=== PATIENT | female | born 1995 | race Caucasian/White ===

== ENCOUNTER 2017-06-22 05:56 | Inpatient (IN) | payer SELFPAY ==
[~2017-06-22] VITALS: Ht 167.6 cm; Wt 55.2 kg
[2017-06-22] MEDS ORDERED: SOD CHLORIDE 0.9% 2,000 ML IV STA (06:09)
[2017-06-22 06:26] LABS: MODE ROOM AIR; MetHgb Venous 0.3 %; Sample Type Blood venous; Venous COHb 0.3 %; Venous Fraction OxyHgb 61.3 %; Venous Total Hemglobin 14.9 g/dl
[2017-06-22] MEDS ORDERED: LORAZEPAM 2 MG INJ IV ONE (06:30)
[2017-06-22] MEDS ORDERED: ONDANSETRON 4 MG INJ IV STA ×2 (06:35→09:13)
[2017-06-22] MEDS ORDERED: ONDANSETRON 4 MG INJ ONE (06:36)
--- NOTE | 2017-06-22 06:41 | ERA ---
ER Documentation Chief Complaint Date/Time DATE: 06/22/17 TIME: 06:37 Chief Complaint abd pain, w/ hx- of hyper glycemia and DKA accu check-306 HPI 21-year-old female history of insulin-dependent diabetes who states that she has been out of her medications for at least 3 days. She states that her insurance no longer covers it. The patient is yelling and screaming complaining of nausea, numbness and tingling. She states that she was just at [facility] and diagnosed with DKA and left AGAINST MEDICAL ADVICE. The patient's Accu-Chek is elevated in triage. Patient denies any fevers chills chest pain or shortness of breath. ROS All systems reviewed and are negative except as per history of present illness. Allergies Allergies: Coded Allergies: No Known Allergy (Unverified , 06/22/17) FmHx Family History: No diabetes Physical Exam Vitals Vital Signs Date Time Temp Pulse Resp B/P Pulse Ox O2 Delivery O2 Flow Rate FiO2 06/22/17 08:00 110 23 130/107 98 Room Air 06/22/17 06:43 119 30 115/73 100 Room Air 06/22/17 06:04 98.2 111 20 106/56 100 Physical Exam General: Disheveled, cachectic, yelling Head: Normocephalic, atraumatic. Eyes: Pupils equally reactive, EOM intact ENT: Very dry mucous membranes Neck: Supple, no lymphadenopathy Respiratory: Lungs clear bilaterally, no distress Cardiovascular: RRR, no murmurs, rubs, or gallops Abdominal: Soft, non-tender, non-distended, no peritoneal signs : Deferred MSK: No edema, no unilateral swelling, 5/5 strength Neurologic: Alert and oriented, moving all extremities, normal speech, no focal weakness, no cerebellar signs Skin: No rash Psych: Agitated mood Result Diagram: 06/22/17 0754 06/22/17 0710 Results 24 hrs Laboratory Tests Test 06/22/17 06:09 06/22/17 07:05 06/22/17 07:10 06/22/17 07:54 Blood Gas Specimen Source Blood venous Arterial Blood Date Drawn 06/22/2017 6:18:28 AM Arterial Blood Gas Puncture Site VENOUS LINE Michael Test N/A Venous Blood pH 7.205 Venous Blood pCO2 (Temp Corrected) 24.7mmHG Venous Blood pO2 (Temp Corrected) 36.5mmHG Venous Blood HCO3 9.5mmol/L Venous Blood Oxygen Saturation 61.7mmHG Venous Blood Base Excess -16.5mmol/L Venous Blood Total Hemoglobin 14.9g/dl Venous Blood Oxyhemoglobin 61.3% Venous Blood Methemoglobin 0.3% Carboxyhemoglobin 0.3% Blood Gas Temperature 37.0C Blood Gas Actual Respiration Rate 20 Blood Gas Modality ROOM AIR FiO2 21.0% Blood Gas Notified Whom Blood Gas Notified Time 06/22/2017 6:26:01 AM Bedside Glucose 345mg/dL Sodium Level 138mmol/L Potassium Level 5.0mmol/L Chloride Level 102mmol/L Carbon Dioxide Level 8mmol/L Anion Gap 33 Blood Urea Nitrogen 11mg/dl Creatinine 0.69mg/dl Glucose Level 329mg/dl Calcium Level 9.3mg/dl Phosphorus Level 2.8mg/dl Magnesium Level 1.7mg/dl Serum HCG, Qualitative NEGATIVE White Blood Count 13.110^3/ul Red Blood Count 4.7210^6/ul Hemoglobin 14.2g/dl Hematocrit 45.7% Mean Corpuscular Volume 96.8fl Mean Corpuscular Hemoglobin 30.1pg Mean Corpuscular Hemoglobin Concent 31.1g/dl Red Cell Distribution Width 14.3% Platelet Count 10035^3/UL Mean Platelet Volume 11.6fl Neutrophils % 77.5% Lymphocytes % 17.7% Monocytes % 3.4% Eosinophils % 0.4% Basophils % 0.5% Nucleated Red Blood Cells % 0.0/100WBC Neutrophils # 10.110^3/ul Lymphocytes # 2.310^3/ul Monocytes # 0.410^3/ul Eosinophils # 0.110^3/ul Basophils # 0.110^3/ul Nucleated Red Blood Cells # 0.010^3/ul Test 06/22/17 08:04 Bedside Glucose 304mg/dL Current Medications Medications (Trade) Dose Ordered Sig/Ilsa Route PRN Reason Start Time Stop Time Status Last Admin Dose Admin Sodium Chloride (NS) 2,000 ml @ 1,000 mls/hr Q2H STAT IV 06/22/17 06:09 06/22/17 08:08 DC 06/22/17 06:40 Lorazepam (Ativan) 1 mg ONCE ONCE IV 06/22/17 06:30 06/22/17 06:31 DC 06/22/17 06:41 Ondansetron HCl (Zofran Inj) 4 mg ONCE STAT IV 06/22/17 06:35 06/22/17 06:36 DC 06/22/17 06:40 Ondansetron HCl 4 mg 4 mg STK-MED ONCE .ROUTE 06/22/17 06:36 06/22/17 06:37 DC Insulin Human Regular 100 unit/ Sodium Chloride 100 ml @ 0 mls/hr TITRATE STAT IV 06/22/17 08:12 06/22/17 08:17 DC Potassium Chloride 40 meq/ Sodium Chloride 1,020 ml @ 250 mls/hr Q4H5M IV 06/22/17 08:30 Potassium Chloride/Dextrose/ Sod Cl (D5-1/2ns + KCl 40 Meq) 1,000 ml @ 0 mls/hr Q0M IV 06/22/17 08:30 Procedures/MDM PROCEDURE: Peripheral IV Insertion: Indication: Difficult IV access Location: Left antecubital fossa Attempts: 3 Angiocath-type: 18 The patient was consented prior to procedure and states understanding of risks, benefits, alternatives. Verbal consent was provided Sterile procedure was used to insert a peripheral IV. Indication, location and Angiocath-type are noted above. Ultrasound guidance was used to assist in the insertion of the Angiocath. Return of dark nonpulsatile blood was obtained, normal saline flushed through the Angiocath which was then secured to the skin. The patient tolerated the procedure well without complications. Emergency Bedside Ultrasound: The patient was verbally consented prior to procedure and understands the risks , benefits, and alternatives. The patient is agreeable to procedure and has given verbal consent. Indication: Peripheral IV insertion Probe Type: Linear Findings: Dynamic ultrasound utilized with compression technique with both linear and horizontal views. LAB INTERPRETATION: Venous blood gas with a pH of 7.2 consistent with diabetic ketoacidosis, significant anion gap metabolic acidosis and hyperglycemia is noted MEDICAL DECISION MAKING: The patient presents with nausea, paresthesias and hyperglycemia in the setting of noncompliance of medication regimen very concerning for diabetic ketoacidosis. The patient's sugars likely noncompliance with medication regimen. No evidence of ischemia or infectious process. The patient has a benign abdominal exam without signs or symptoms of acute intra-abdominal process. The patient will require aggressive fluid resuscitation, management of hyperglycemic state and likely insulin drip. I will wait for laboratory values and potassium prior to initiation of insulin. The patient will be given 2 L of saline. Lactated Ringer's as needed. Electrolyte replacement as needed. The patient will require intensive care unit level of care. She is also extremely anxious and will benefit from anxiolysis with Ativan. ER COURSE: The patient was difficult IV access and difficult to get blood draw. She was also poorly cooperative with these procedures and medical care in general. Eventually we are able to obtain an IV. Labs were sent. The patient has an anion gap metabolic acidosis very consistent with diabetic ketoacidosis. Potassium is reassuring. The patient was initiated on an insulin drip per protocol. A 2 bag system using half-normal saline and D5 half-normal saline with 40 mEq of potassium each was initiated. Education was provided to the nursing team for directions on titration of the drips at a rate of 250 cc/h. The patient will benefit from intensive care unit level of care. Anxiolysis provided with Ativan. I kept the patient and/or family informed of laboratory and diagnostic imaging results throughout the emergency room course. DISPOSITION PLAN: Intensive care unit for management of diabetic ketoacidosis CONSULTATION: Accepting care team and consultations: I discussed the current laboratory data, diagnostic imaging and emergency care provided. Admitting team: Dr. Reyes Admitting team indication: Insurance directed Critical Care Note: Total time: 46 Indication/Organ System Threat: Diabetic ketoacidosis I spent the above amount of critical care time with the patient, not including billable procedures. This included chart review, consultations, repeat bedside evaluations, and titration of appropriate medications to prevent cardiopulmonary or respiratory collapse. Departure Diagnosis: Primary Impression: Diabetic ketoacidosis Qualified Code: E10.10 - Diabetic ketoacidosis without coma associated with type 1 diabetes mellitus Additional Impressions: Nausea and vomiting Qualified Code: R11.2 - Nausea and vomiting, intractability of vomiting not specified, unspecified vomiting type Noncompliance with medication regimen Condition: Critical IGGY HAGAN MD Jun 22, 2017 06:41
[2017-06-22 08:05] LABS: CALCIUM 9.3 mg/dl (8.4-10.2); CREATININE 0.69 mg/dl (0.44-1.00); MAGNESIUM 1.7 mg/dl (1.7-2.5); PHOSPHORUS 2.8 mg/dl (2.5-4.9)
[2017-06-22] MEDS ORDERED: INSULIN HUMAN REGULAR 100 UNIT in SOD CHLORIDE 0.9% 99 ML IV STA (08:12)
[2017-06-22 08:24] LABS: BASOPHIL # 0.1 10^3/ul (0.0-0.1); BASOPHILS % 0.5 % (0.0-2.0); EOSINOPHILS # 0.1 10^3/ul (0.0-0.5); EOSINOPHILS % 0.4 % (0.0-7.0); HEMATOCRIT 45.7 % (37.0-47.0); HEMOGLOBIN 14.2 g/dl (12.0-16.0); LYMPHOCYTES # 2.3 10^3/ul (0.8-2.9); LYMPHOCYTES % 17.7 % (18.0-55.0); MEAN CORPUSCULAR HEMOGLOBIN 30.1 pg (29.0-33.0); MEAN CORPUSCULAR HGB CONC 31.1 g/dl (32.0-37.0); MEAN CORPUSCULAR VOLUME 96.8 fl (72.0-104.0); MEAN PLATELET VOLUME 11.6 fl (7.4-10.4); MONOCYTE # 0.4 10^3/ul (0.3-0.9); MONOCYTES % 3.4 % (0.0-13.0); NEUTROPHIL # 10.1 10^3/ul (1.6-7.5); NEUTROPHILS % 77.5 % (30.0-74.0); PLATELET COUNT 196 10^3/UL (140-415); RED BLOOD COUNT 4.72 10^6/ul (4.20-5.40); RED CELL DISTRIBUTION WIDTH 14.3 % (11.5-14.5); WHITE BLOOD COUNT 13.1 10^3/ul (4.8-10.8)
[2017-06-22] MEDS ORDERED: D5W-0.45 NACL + KCL 40 MEQ 1,000 ML IV SCH ×3 (08:30→20:30)
[2017-06-22] MEDS ORDERED: SOD CHLORIDE 0.9% 1,000 ML IV SCH (09:17)
[2017-06-22] MEDS: POTASSIUM CHLORIDE 40 MEQ in SOD CHLORIDE 0.45% 1,000 ML IV SCH ×4 (09:21→20:45)
[2017-06-22] MEDS ORDERED: INSULIN HUMAN REGULAR 100 UNIT in SOD CHLORIDE 0.9% 99 ML IV SCH (09:30)
[2017-06-22] MEDS ORDERED: NA BICARBONATE 8.4% 50 ML SYG IV ONE (09:30)
[2017-06-22] MEDS ORDERED: DEXTROSE 50% 50 ML SYRINGE IV PRN ×2 (09:30)
[2017-06-22] MEDS: ACCU-CHEK XX SCH ×20 (09:45→23:55)
[2017-06-22] MEDS ORDERED: LACTATED RINGER'S 1,000 ML IV SCH (10:17)
[2017-06-22 10:18] LABS: ALBUMIN 4.2 g/dl (3.3-4.9); CALCIUM 8.9 mg/dl (8.4-10.2); CREATININE 0.73 mg/dl (0.44-1.00); PHOSPHORUS 2.8 mg/dl (2.5-4.9); POTASSIUM 5.1 mmol/L (3.5-5.1)
[2017-06-22 11:10] LABS: MODE ROOM AIR; Sample Type BLMV
[2017-06-22] MEDS ORDERED: POTASSIUM CHLORIDE 10 MEQ in SOD CHLORIDE 0.9% 1,000 ML IV SCH (11:17)
[2017-06-22 11:34] LABS: CREATININE 0.63 mg/dl (0.44-1.00); MAGNESIUM 1.4 mg/dl (1.7-2.5); PHOSPHORUS 2.2 mg/dl (2.5-4.9); POTASSIUM 5.2 mmol/L (3.5-5.1)
--- NOTE | 2017-06-22 12:43 | HP ---
Date/Time of Note Date/Time of Note DATE: 06/22/17 TIME: 12:36 Assessment/Plan VTE Prophylaxis VTE Prophylaxis Intervention: SCD's Assessment/Plan Chief Complaint/Hosp Course Patient is a 21-year-old noncompliant insulin-dependent diabetic who ran out of medications 3 ago, presents with DKA Assessment Diabetic ketoacidosis secondary to medication noncompliance Agitation, Altered mental status, likely secondary to DKA Hyperkalemia, likely transient due to DKA Metabolic acidosis, likely secondary to DKA Hypoglycemia Electrolyte derangement Plan -Admit to ICU for DKA protocol with insulin drip -Copious fluids -Every 4 hours VBG and renal panels -We will follow closely in the ICU -Repeat a.m. labs Cayden Gross DO Problems: HPI/ROS Admit Date/Time Admit Date/Time Hx of Present Illness Patient is a 21-year-old female with past medical history of insulin- dependent diabetes who presents to [facility] the same day as she left AMA from [place]. Patient is in DKA at [place] and still left AMA. Patient is currently still in DKA and will be admitted to the ICU. Patient currently is sleeping and is only arousable when agitated or when you take the covers off her. Patient is unwilling to cooperate during the exam. Unable to confirm other review of systems as patient is noncompliant with questioning and answering. PMH: Insulin-dependent diabetes PSH: Unknown Social: Unknown Meds: Insulin, however patient has not been with her medications last 3 days PMH/Family/Social Social History Smoking Status: Unknown if ever smoked Exam/Review of Systems Vital Signs Vitals Vital Signs Date Time Temp Pulse Resp B/P Pulse Ox O2 Delivery O2 Flow Rate FiO2 06/22/17 12:28 101 20 110/65 100 Room Air 06/22/17 06:04 98.2 Exam Exam Physical exam General: Patient is laying in bed, sleeping, can easily arouse, but patient can get agitated. Mentation: unable to fully assess given agitated state Head: Normocephalic atraumatic Eyes: EOMI, Neck: Supple, nontender, midline Respiratory: will not cooperate, Cardiovascular: tachycardic, no obvious murmurs Gastrointestinal: non-tender to palpation, bowel sounds heard. Neurological: Moves all extremities spontaneously Skin: No new skin lesions Labs Result Diagram: 06/22/17 0754 06/22/17 1029 Medications Medications Current Medications Potassium Chloride 40 meq/ Sodium Chloride 1,020 ml @ 250 mls/hr Q4H5M IV Last administered on 06/22/17 12:27; Admin Dose 250 MLS/HR; Start 06/22/17 at 08:30 Potassium Chloride/Dextrose/ Sod Cl (D5-1/2ns + KCl 40 Meq) 1,000 ml @ 0 mls/ hr Q0M IV Last administered on 06/22/17 09:21; Admin Dose 125 MLS/HR; Start at 08:30 Dextrose (D50w Syringe) 50 ml Q15M PRN IV For BS 50 or less; Start 06/22/17 at 09:30 Dextrose 25 ml 25 ml Q15M PRN IV BS between 50-70; Start 06/22/17 at 09:30 Potassium Chloride 10 meq/ Sodium Chloride 1,005 ml @ 500 mls/hr Q2H1M IV ; Start 06/22/17 at 11:17; Stop 06/22/17 at 13:16 Sodium Chloride (1/2 NS) 1,000 ml @ 300 mls/hr Q3H20M IV Last administered on 06/22/17 12:28; Admin Dose 300 MLS/HR; Start 06/22/17 at 13:17; Stop 06/22/17 at 16:36 Diagnostic Test (Pha) (Accu-Chek) 1 ea Q1H XX Last administered on 06/22/17 12 :27; Admin Dose 1 EA; Start 06/22/17 at 09:30 CAYDEN GROSS Jun 22, 2017 12:43
[2017-06-22] MEDS ORDERED: SOD CHLORIDE 0.45% 1,000 ML IV SCH (13:17)
[2017-06-22] MEDS ORDERED: CALCIUM GLUCONATE 10% 1 GM in SOD CHLORIDE 0.9% 100 ML IVPB ONE (14:00)
[2017-06-22] MEDS ORDERED: MAGNESIUM SULFATE 1 GM/D5W 100 ML IVPB ONE (14:00)
[2017-06-22] MEDS ORDERED: SODIUM PHOSPHATE 15 MMOL in SOD CHLORIDE 0.9% 250 ML IVPB ONE (14:00)
[2017-06-22 15:48] LABS: MetHgb Venous 0.5 %; Venous COHb 0 %; Venous Fraction OxyHgb 72.7 %; Venous Total Hemglobin 13.5 g/dl
[2017-06-22 16:02] LABS: CALCIUM 7.8 mg/dl (8.4-10.2); CREATININE 0.57 mg/dl (0.44-1.00); PHOSPHORUS 1.9 mg/dl (2.5-4.9); POTASSIUM 4.9 mmol/L (3.5-5.1)
[2017-06-22 17:04] LABS: ADD UMIC NO; UR ASCORBIC ACID NEGATIVE (NEGATIVE); UR BILIRUBIN (Dip) NEGATIVE (NEGATIVE); UR BLOOD (Dip) NEGATIVE (NEGATIVE); UR CLARITY CLEAR (CLEAR); UR COLOR COLORLESS (YELLOW); UR GLUCOSE (Dip) 3+ mg/dL (NEGATIVE); UR KETONES (Dip) 1+ mg/dL (NEGATIVE); UR LEUKOCYTE ESTERASE (Dip) NEGATIVE Leu/ul (NEGATIVE); UR NITRITE (Dip) NEGATIVE (NEGATIVE); UR SPECIFIC GRAVITY (Dip) 1.005 (1.003-1.030); UR TOTAL PROTEIN (Dip) NEGATIVE (NEGATIVE); UR UROBILINOGEN (Dip) NEGATIVE (NEGATIVE)
[2017-06-22 17:23] LABS: CANNABINOIDS Positive (NEGATIVE); OPIATES Negative (NEGATIVE)
[2017-06-22 17:26] LABS: BARBITURATES Negative (NEGATIVE); BENZODIAZEPINES Negative (NEGATIVE); COCAINE Negative (NEGATIVE)
[2017-06-22 19:38] LABS: CALCIUM 8.2 mg/dl (8.4-10.2); CREATININE 0.56 mg/dl (0.44-1.00); MAGNESIUM 1.8 mg/dl (1.7-2.5); PHOSPHORUS 2.6 mg/dl (2.5-4.9); POTASSIUM 4.7 mmol/L (3.5-5.1)
[2017-06-22 23:55] VITALS: TEMP 98.7
[2017-06-23] VITALS (24 sets, daily range): BP systolic 91–122; BP diastolic 63–84; PULSE 88–118; RESP 13–31; Ht 167.6 cm; Wt 55.2 kg
[2017-06-23] MEDS: ACCU-CHEK XX SCH ×20 (00:12→22:14)
[2017-06-23 02:07] LABS: CALCIUM 8.2 mg/dl (8.4-10.2); CREATININE 0.57 mg/dl (0.44-1.00); POTASSIUM 4.7 mmol/L (3.5-5.1)
[2017-06-23] MEDS: POTASSIUM CHLORIDE 40 MEQ in SOD CHLORIDE 0.45% 1,000 ML IV SCH (02:07)
[2017-06-23] MEDS ORDERED: GLUCAGON 1 MG INJ IM PRN (03:00)
[2017-06-23] MEDS ORDERED: DEXTROSE 50% 50 ML SYRINGE IV PRN ×3 (03:00→10:30)
[2017-06-23] MEDS ORDERED: GLUCOSE GEL 15 GRAM TUBE BUCCAL PRN (03:00)
[2017-06-23] MEDS ORDERED: GLUCOSE GEL 15 GRAM TUBE PO PRN ×2 (03:00)
[2017-06-23] MEDS ORDERED: DEXTROSE 5%-0.9% NACL 1,000 ML IV SCH (05:30)
[2017-06-23] MEDS: NPH, HUMAN INSULIN ISOPHANE 3ML VIAL SC SCH ×2 (05:30→08:34)
[2017-06-23] MEDS ORDERED: SOD CHLORIDE 0.9% 1,000 ML IV SCH (06:00)
[2017-06-23] MEDS ORDERED: INSULIN ASPART [NOVOLOG] 3 ML PEN SC SCH (07:35)
[2017-06-23 09:12] LABS: ALBUMIN 3.6 g/dl (3.3-4.9); CREATININE 0.53 mg/dl (0.44-1.00); MAGNESIUM 1.5 mg/dl (1.7-2.5); PHOSPHORUS 2.3 mg/dl (2.5-4.9); POTASSIUM 4.8 mmol/L (3.5-5.1)
[2017-06-23] MEDS ORDERED: INSULIN HUMAN REGULAR 100 UNIT in SOD CHLORIDE 0.9% 99 ML IV SCH (10:30)
[2017-06-23] MEDS ORDERED: HYPOGLYCEMIA TREATMENT XX PRN (10:30)
[2017-06-23 12:14] LABS: MODE ROOM AIR; MetHgb Venous 0.2 %; Sample Type Blood venous; Venous COHb 0.5 %; Venous Fraction OxyHgb 87.9 %; Venous Total Hemglobin 14.5 g/dl
[2017-06-23 12:50] LABS: ALBUMIN 3.5 g/dl (3.3-4.9); CREATININE 0.54 mg/dl (0.44-1.00); MAGNESIUM 1.5 mg/dl (1.7-2.5); PHOSPHORUS 2.2 mg/dl (2.5-4.9); POTASSIUM 5.2 mmol/L (3.5-5.1)
--- NOTE | 2017-06-23 13:43 | PN ---
Date/Time of Note Date/Time of Note DATE: 06/23/17 TIME: 13:39 Assessment/Plan VTE Prophylaxis VTE Prophylaxis Intervention: ambulation Lines/Catheters IV Catheter Type (from [facility]): Saline Lock Assessment/Plan Chief Complaint/Hosp Course Patient is a 21-year-old noncompliant insulin-dependent diabetic who ran out of medications 3 ago, presents with DKA Assessment Diabetic ketoacidosis secondary to medication noncompliance Agitation, Altered mental status, likely secondary to DKA Hyperkalemia, likely transient due to DKA Metabolic acidosis, likely secondary to DKA Hypoglycemia Electrolyte derangement Plan -Pt out of DKA this morning, however refused subq insulin, went back into DKA -restarted insulin protocol -patient changes her mind constantly. States will eat food, then refuses. -Fluids will try to be adjusted, no standing orders as patient's condition changes on a constant basis due to her agitated state. -q8 renal panels to monitor -We will follow closely in the ICU -Repeat a.m. labs Cayden Gross DO Problems: Subjective 24 Hr Interval Summary Free Text/Dictation Still agitated and yelling at staff. very non-compliant. Was out of DKA, then patient refused subq insulin, going back into DKA. Exam/Review of Systems Vital Signs Vitals Vital Signs Date Time Temp Pulse Resp B/P Pulse Ox O2 Delivery O2 Flow Rate FiO2 06/23/17 09:00 100 18 111/73 100 Room Air 06/23/17 08:35 98.8 Intake and Output 06/22/17 06/22/17 06/23/17 15:00 23:00 07:00 Intake Total 506 ml Balance 506 ml Exam Physical exam General: Patient is laying in bed, can easily arouse, but patient can get agitated. Mentation: unable to fully assess given agitated state Head: Normocephalic atraumatic Eyes: EOMI, Neck: Supple, nontender, midline Respiratory: will not cooperate, Cardiovascular: tachycardic, no obvious murmurs Gastrointestinal: non-tender to palpation, bowel sounds heard. Neurological: Moves all extremities spontaneously Skin: No new skin lesions Results Result Diagram: 06/22/17 0754 06/23/17 6055 Results 24 hrs Laboratory Tests Test 06/22/17 14:40 06/22/17 14:58 06/22/17 15:35 06/22/17 16:30 Bedside Glucose 215 208 Sodium Level 139 Potassium Level 4.9 Chloride Level 111 H Carbon Dioxide Level 15 L Anion Gap 18 #H Blood Urea Nitrogen 7 Creatinine 0.57 Glucose Level 224 H Calcium Level 7.8 L Phosphorus Level 1.9 L Magnesium Level 2.0 Urine Color COLORLESS Urine Clarity CLEAR Urine pH 5.0 Urine Specific [place] 1.005 Urine Ketones 1+ H Urine Nitrite NEGATIVE Urine Bilirubin NEGATIVE Urine Urobilinogen NEGATIVE Urine Leukocyte Esterase NEGATIVE Urine Hemoglobin NEGATIVE Urine Glucose 3+ H Urine Total Protein NEGATIVE Urine Opiates Screen Negative Urine Barbiturates Negative Urine Amphetamines Screen Negative Urine Benzodiazepines Screen Negative Urine Cocaine Screen Negative Urine Cannabinoids Positive Test 06/22/17 16:32 06/22/17 17:24 06/22/17 18:33 06/22/17 18:58 Bedside Glucose 186 184 162 Sodium Level 141 Potassium Level 4.7 Chloride Level 112 H Carbon Dioxide Level 18 L Anion Gap 16 Blood Urea Nitrogen 5 L Creatinine 0.56 Glucose Level 153 Calcium Level 8.2 L Phosphorus Level 2.6 Magnesium Level 1.8 Test 06/22/17 19:40 06/22/17 20:52 06/22/17 21:56 06/22/17 23:53 Bedside Glucose 112 112 139 183 Test 06/23/17 01:00 06/23/17 01:03 06/23/17 02:02 06/23/17 03:06 Bedside Glucose 141 135 104 Sodium Level 141 Potassium Level 4.7 Chloride Level 113 H Carbon Dioxide Level 19 L Anion Gap 14 Blood Urea Nitrogen 3 L Creatinine 0.57 Glucose Level 182 Calcium Level 8.2 L Test 06/23/17 04:05 06/23/17 04:27 06/23/17 04:44 06/23/17 07:18 Bedside Glucose 63 L 127 126 Blood Gas Specimen Source Blood venous Arterial Blood Date Drawn 06/23/2017 11:40:26 AM Arterial Blood Gas Puncture Site OTHER Michael Test N/A Venous Blood pH 7.328 L Venous Blood pCO2 (Temp Corrected) 28.4 L Venous Blood pO2 (Temp Corrected) 55.6 H Venous Blood HCO3 14.6 L Venous Blood Oxygen Saturation 88.5 H Venous Blood Base Excess -9.8 L Venous Blood Total Hemoglobin 14.5 Venous Blood Oxyhemoglobin 87.9 Venous Blood Methemoglobin 0.2 Carboxyhemoglobin 0.5 Blood Gas Temperature 37.0 Blood Gas Modality ROOM AIR FiO2 21.0 Blood Gas Critical Value Read Back HUI FRANKEL Blood Gas Notified Whom [place] Blood Gas Notified Time 06/23/2017 12:10:11 PM Test 06/23/17 08:20 06/23/17 08:22 06/23/17 09:56 06/23/17 11:35 Sodium Level 142 137 Potassium Level 4.8 5.2 H Chloride Level 108 105 Carbon Dioxide Level 15 L 13 L Anion Gap 24 #H 24 H Blood Urea Nitrogen 2 L 3 L Creatinine 0.53 0.54 Glucose Level 211 297 H Calcium Level 9.0 9.0 Phosphorus Level 2.3 L 1.9 L Magnesium Level 1.5 L 1.5 L Albumin 3.6 3.5 Bedside Glucose 202 249 H Hemoglobin A1c 11.3 H Test 06/23/17 11:55 06/23/17 12:50 Bedside Glucose 305 H 237 H Medications Medications Current Medications Lorazepam (Ativan) 1 mg Q6H PRN IV AGITATION; Start 06/22/17 at 13:00 Dextrose (D50w Syringe) 50 ml Q15M PRN IV For BS 50 or less; Start 06/23/17 at 10:30 Dextrose (D50w Syringe) 25 ml Q15M PRN IV BS between 50-70; Start 06/23/17 at 10:30 Diagnostic Test (Pha) 1 ea 1 ea Q1H XX ; Start 06/23/17 at 10:30 Sodium Chloride (1/2 NS) 1,000 ml @ 100 mls/hr Q10H IV ; Start 06/23/17 at 14: 00; Status UNV CAYDEN GROSS Jun 23, 2017 13:43
[2017-06-23] MEDS ORDERED: MAGNESIUM SULFATE 1 GM/D5W 100 ML IVPB ONE (14:00)
[2017-06-23] MEDS: DEXTROSE 5%-0.45% NACL 1,000 ML IV SCH (14:31)
[2017-06-23] MEDS: SOD CHLORIDE 0.45% 1,000 ML IV SCH (16:00)
[2017-06-23] MEDS ORDERED: SODIUM PHOSPHATE 30 MMOL in SOD CHLORIDE 0.9% 250 ML IVPB ONE (16:00)
[2017-06-23] MEDS: LORAZEPAM 2 MG INJ IV PRN (18:00)
[2017-06-23 20:46] LABS: CALCIUM 8.6 mg/dl (8.4-10.2); CREATININE 0.53 mg/dl (0.44-1.00); POTASSIUM 4.1 mmol/L (3.5-5.1)
[2017-06-23] MEDS: DEXTROSE 50% 50 ML SYRINGE IV PRN (22:08)
[2017-06-24] VITALS (10 sets, daily range): BP systolic 96–127; BP diastolic 60–89; PULSE 85–103; RESP 18–22
[2017-06-24] MEDS: ACCU-CHEK XX SCH ×13 (00:29→11:36)
[2017-06-24] MEDS: DEXTROSE 5%-0.45% NACL 1,000 ML IV SCH ×2 (01:00→10:00)
[2017-06-24] MEDS ORDERED: ACCU-CHEK XX SCH (02:00)
[2017-06-24] MEDS: DEXTROSE 50% 50 ML SYRINGE IV PRN (08:04)
[2017-06-24] MEDS ORDERED: DEXTROSE 5% 1,000 ML IV SCH (09:00)
[2017-06-24 09:10] LABS: BASOPHILS % 0.4 % (0.0-2.0); EOSINOPHILS # 0.2 10^3/ul (0.0-0.5); HEMATOCRIT 38.1 % (37.0-47.0); HEMOGLOBIN 12.7 g/dl (12.0-16.0); LYMPHOCYTES # 2.8 10^3/ul (0.8-2.9); LYMPHOCYTES % 33.5 % (18.0-55.0); MEAN CORPUSCULAR HGB CONC 33.3 g/dl (32.0-37.0); MEAN CORPUSCULAR VOLUME 89.9 fl (72.0-104.0); MEAN PLATELET VOLUME 9.5 fl (7.4-10.4); MONOCYTE # 0.6 10^3/ul (0.3-0.9); MONOCYTES % 6.8 % (0.0-13.0); NEUTROPHIL # 4.8 10^3/ul (1.6-7.5); NEUTROPHILS % 56.9 % (30.0-74.0); PLATELET COUNT 237 10^3/UL (140-415); RED BLOOD COUNT 4.24 10^6/ul (4.20-5.40); RED CELL DISTRIBUTION WIDTH 14.2 % (11.5-14.5); WHITE BLOOD COUNT 8.4 10^3/ul (4.8-10.8)
[2017-06-24 09:16] LABS: CALCIUM 8.2 mg/dl (8.4-10.2); CREATININE 0.51 mg/dl (0.44-1.00); POTASSIUM 3.5 mmol/L (3.5-5.1)
[2017-06-24 09:17] LABS: MAGNESIUM 1.5 mg/dl (1.7-2.5); PHOSPHORUS 3.5 mg/dl (2.5-4.9)
--- NOTE | 2017-06-24 09:59 | PN ---
Date/Time of Note Date/Time of Note DATE: 06/24/17 TIME: 09:59 Assessment/Plan VTE Prophylaxis VTE Prophylaxis Intervention: SCD's Lines/Catheters IV Catheter Type (from [facility]): Peripheral IV Assessment/Plan Chief Complaint/Hosp Course 1. Diabetic ketoacidosis secondary to poor compliance with medications. On insulin drip. Will involve endocrinology of the case. 2. Acute encephalopathy. Most probably secondary to underlying toxic metabolic encephalopathy. Resolved. 3. Metabolic acidosis. Most probably secondary to underlying diabetic ketoacidosis. Resolved. 4. Hyperkalemia. Resolved. 5. Noncompliance. Will advise the patient on the necessity of being compliant with insulin regimen. Will involve diabetic educator. 6. Fluids, electrolytes, and nutrition. Continue IV fluids. Once patient's anion gap is closed, we will start the patient on a sliding scale insulin and the patient will be started on a carbohydrate controlled diet. 7. DVT prophylaxis. Bilateral sequential compression devices. 8. Gastrointestinal prophylaxis. Histamine 2 receptor blockers. 9. Plan. Continue insulin drip. End of the insulin drip once the patient's anion gap is closed after giving Lantus insulin. Case discussed with Dr. Mendoza. Critical care time: 35 minutes. Problems: Subjective 24 Hr Interval Summary Free Text/Dictation Patient has been noncompliant with the blood glucose. Asking for food. Exam/Review of Systems Vital Signs Vitals Vital Signs Date Time Temp Pulse Resp B/P Pulse Ox O2 Delivery O2 Flow Rate FiO2 06/24/17 09:00 87 20 119/86 100 Room Air 06/24/17 04:00 98.2 Intake and Output 06/23/17 06/23/17 06/24/17 15:00 23:00 07:00 Intake Total 560.0 ml 1200.0 ml 714 ml Output Total 300 ml 400 ml 0 ml Balance 260.0 ml 800.0 ml 714 ml Exam General: Adequately build 21 year-old female lying in bed in no apparent distress. HEENT: Normocephalic, atraumatic. Eyes: Anicteric sclerae, conjunctivae clear. ENT: Nasal septum midline, oral mucosa moist. Neck supple, no JVD noticed. Respiratory: Bilaterally clear breath sounds. No use of accessory muscles of respiration. No adventitious breath sounds. Cardiovascular: S1, S2 heard. No murmurs or gallops. Abdomen: Soft, nontender, and nondistended. Bowel sounds positive in all 4 quadrants. Genitourinary: Deferred. Extremities: No cyanosis, no clubbing, no edema. Peripheral pulses palpable. Neurologic: Cranial nerves II through XII grossly intact. The patient is awake, alert, and oriented. Skin: Normal skin turgor. No skin rashes. Results Result Diagram: 06/24/17 0849 06/24/17 0848 Results 24 hrs Laboratory Tests Test 06/23/17 11:35 06/23/17 11:55 06/23/17 12:50 06/23/17 14:15 Sodium Level 137 Potassium Level 5.2 H Chloride Level 105 Carbon Dioxide Level 13 L Anion Gap 24 H Blood Urea Nitrogen 3 L Creatinine 0.54 Glucose Level 297 H Hemoglobin A1c 11.3 H Calcium Level 9.0 Phosphorus Level 1.9 L Magnesium Level 1.5 L Albumin 3.5 Bedside Glucose 305 H 237 H 209 Test 06/23/17 16:01 06/23/17 17:52 06/23/17 20:03 06/23/17 20:16 Bedside Glucose 260 H 165 107 Sodium Level 141 Potassium Level 4.1 Chloride Level 103 Carbon Dioxide Level 26 # Anion Gap 16 # Blood Urea Nitrogen 5 L Creatinine 0.53 Glucose Level 113 # Calcium Level 8.6 Test 06/23/17 21:05 06/23/17 22:05 06/23/17 22:29 06/23/17 22:45 Bedside Glucose 80 63 L 122 143 Test 06/24/17 00:15 06/24/17 01:01 06/24/17 01:56 06/24/17 03:02 Bedside Glucose 183 182 155 216 Test 06/24/17 04:03 06/24/17 05:03 06/24/17 06:05 06/24/17 07:07 Bedside Glucose 145 136 74 70 Test 06/24/17 07:59 06/24/17 08:06 06/24/17 08:27 06/24/17 08:48 Bedside Glucose 54 L 174 107 Sodium Level 142 Potassium Level 3.5 Chloride Level 109 Carbon Dioxide Level 24 Anion Gap 13 Blood Urea Nitrogen 5 L Creatinine 0.51 Glucose Level 119 Calcium Level 8.2 L Phosphorus Level 3.5 Magnesium Level 1.5 L Test 06/24/17 08:49 White Blood Count 8.4 # Red Blood Count 4.24 Hemoglobin 12.7 Hematocrit 38.1 Mean Corpuscular Volume 89.9 Mean Corpuscular Hemoglobin 30.0 Mean Corpuscular Hemoglobin Concent 33.3 Red Cell Distribution Width 14.2 Platelet Count 237 # Mean Platelet Volume 9.5 Neutrophils % 56.9 Lymphocytes % 33.5 Monocytes % 6.8 Eosinophils % 2.0 Basophils % 0.4 Nucleated Red Blood Cells % 0.0 Neutrophils # 4.8 Lymphocytes # 2.8 Monocytes # 0.6 Eosinophils # 0.2 Basophils # 0.0 Nucleated Red Blood Cells # 0.0 Medications Medications Current Medications Lorazepam (Ativan) 1 mg Q6H PRN IV AGITATION Last administered on 06/23/17 18: 00; Admin Dose 1 MG; Start 06/22/17 at 13:00 Dextrose (D50w Syringe) 50 ml Q15M PRN IV For BS 50 or less; Start 06/23/17 at 10:30 Dextrose (D50w Syringe) 25 ml Q15M PRN IV BS between 50-70 Last administered on 06/24/17 08:04; Admin Dose 25 ML; Start 06/23/17 at 10:30 Diagnostic Test (Pha) 1 ea 1 ea Q1H XX Last administered on 06/24/17 09:36; Admin Dose 1 EA; Start 06/23/17 at 10:30 Sodium Chloride 1,000 ml @ 100 mls/hr Q10H IV ; Start 06/23/17 at 14:00 Dextrose/Sodium Chloride 1,000 ml @ 100 mls/hr Q10H IV Last administered on 01:00; Admin Dose 100 MLS/HR; Start 06/23/17 at 14:00 Dextrose 1,000 ml @ 75 mls/hr [id number] IV Last administered on 06/24/17 09:02 ; Admin Dose 75 MLS/HR; Start 06/24/17 at 09:00 Magnesium Sulfate (Magnesium Sulfate 2 Gm/50 ml) 50 ml @ 25 mls/hr ONCE ONCE IVPB ; Start 06/24/17 at 10:00; Stop 06/24/17 at 11:59 Insulin Glargine (Lantus) 11 unit ONCE ONCE SC ; Start 06/24/17 at 10:00; Stop 06/24/17 at 10:01 Miscellaneous Information (* Miscellaneous Pharmacy Order) Discontinue current oral sulfonylur... ONCE ONCE XX ; Start 06/24/17 at 10:00; Stop 06/24/17 at 10: 01 Diagnostic Test (Pha) (Accu-Chek) 1 ea 02 XX ; Start 06/25/17 at 02:00 Miscellaneous Information (* Miscellaneous Pharmacy Order) HYPOGLYCEMIA PROTOCOL w... ONCE ONCE XX ; Start 06/24/17 at 10:00; Stop 06/24/17 at 10:01 Miscellaneous Information (* Miscellaneous Pharmacy Order) Discontinue all previ... ONCE ONCE XX ; Start 06/24/17 at 10:00; Stop 06/24/17 at 10:01 Diagnostic Test (Pha) (Accu-Chek) 1 ea 02 XX ; Start 06/25/17 at 02:00 Miscellaneous Information 1 ea NOTE XX ; Start 06/24/17 at 10:00 Glucose (Glutose) 15 gm Q15M PRN PO DECREASED GLUCOSE; Start 06/24/17 at 10:00 Glucose (Glutose) 22.5 gm Q15M PRN PO DECREASED GLUCOSE; Start 06/24/17 at 10: 00 Dextrose (D50w Syringe) 25 ml Q15M PRN IV DECREASED GLUCOSE; Start 06/24/17 at 10:00 Dextrose (D50w Syringe) 50 ml Q15M PRN IV DECREASED GLUCOSE; Start 06/24/17 at 10:00 Glucagon (Glucagen) 1 mg Q15M PRN IM DECREASED GLUCOSE; Start 06/24/17 at 10:00 Glucose (Glutose) 15 gm Q15M PRN BUCCAL DECREASED GLUCOSE; Start 06/24/17 at 10 :00 ZEUS ALMANZAR NP Jun 24, 2017 09:59
[2017-06-24] MEDS ORDERED: INSULIN GLARGINE [LANtus] 3 ML PEN SC ONE (10:00)
[2017-06-24] MEDS ORDERED: GLUCAGON 1 MG INJ IM PRN (10:00)
[2017-06-24] MEDS ORDERED: GLUCOSE GEL 15 GRAM TUBE PO PRN ×2 (10:00)
[2017-06-24] MEDS ORDERED: MAGNESIUM SULFATE 2 GM/50 ML 50 ML IVPB ONE (10:00)
[2017-06-24] MEDS ORDERED: DEXTROSE 50% 50 ML SYRINGE IV PRN ×2 (10:00)
[2017-06-24] MEDS ORDERED: GLUCOSE GEL 15 GRAM TUBE BUCCAL PRN (10:00)
[2017-06-24] MEDS: SOD CHLORIDE 0.45% 1,000 ML IV SCH ×2 (10:00)
[2017-06-24] MEDS: LORAZEPAM 2 MG INJ IV PRN (11:15)
[2017-06-24] MEDS ORDERED: INSULIN ASPART [NOVOLOG] 3 ML PEN SC SCH ×2 (11:30)
--- NOTE | 2017-06-24 13:48 | DS ---
Date/Time of Note Date/Time of Note DATE: 06/24/17 TIME: 13:45 Discharge Summary Admission/Discharge Info Admit Date/Time Jun 22, 2017 at 09:16 Discharge Date/Time Jun 24, 2017 at 12:35 Discharge Diagnosis 1. Diabetic ketoacidosis. Left AGAINST MEDICAL ADVICE 2. Type 1 diabetes mellitus. 3. Metabolic acidosis. 4. Noncompliance. Patient Condition: Fair Hx of Present Illness Patient is a 21-year-old female with past medical history of insulin- dependent diabetes who presents to [facility] the same day as she left AMA from [place]. Patient is in DKA at [facility] and still left AM. Patient is currently still in DKA and will be admitted to the ICU. Patient currently is sleeping and is only arousable when agitated or when you take the covers off her. Patient is unwilling to cooperate during the exam. Unable to confirm other review of systems as patient is noncompliant with questioning and answering. PMH: Insulin-dependent diabetes PSH: Unknown Social: Unknown Meds: Insulin, however patient has not been with her medications last 3 days Hospital Course The patient was admitted to inpatient intensive care unit. The patient was maintained on a insulin drip. Patient also had some underlying confusion most probably secondary to toxic metabolic encephalopathy from her underlying diabetic ketoacidosis which was resolved with correction of underlying diabetic ketoacidosis. The patient also had some underlying hyperkalemia that resolved. Patient's hemoglobin A1c was found to be 11.3. Patient has been noncompliant with the medical management as well as medication intake. She continued to refuse multiple blood draws. The patient continued to refuse to scan her medications. The patient was adamant about eating although the patient was on insulin drip. Finally, the patient came out of DKA and she was started on a sliding scale insulin after giving her a single dose of Lantus insulin. The patient has been very noncompliant with the medical management throughout the hospital course. The patient has been refusing care. The patient has been spurting out profanities to providers and nursing staff. On 06/24/2017, the patient left the hospital AGAINST MEDICAL ADVICE. The patient was informed about the consequences of leaving the hospital AGAINST MEDICAL ADVICE including the possibility of . Nevertheless, the patient left the hospital AGAINST MEDICAL ADVICE. No discharge planning was done since the patient left the hospital AGAINST MEDICAL ADVICE. Case discussed with Dr. Mendoza. Home Meds Unable to Obtain Active Prescriptions or Reported Meds Follow-up Plan No follow-up plan was provided since the patient left the hospital AGAINST MEDICAL ADVICE Primary Care Provider Not On Staff Doctor Time spent on discharge: < 30 minutes Pending Labs Laboratory Tests Test 06/23/17 14:15 06/23/17 16:01 06/23/17 17:52 06/23/17 20:03 Bedside Glucose 209mg/dL (70-220) 260mg/dL (70-220) 165mg/dL (70-220) 107mg/dL (70-220) Test 06/23/17 20:16 06/23/17 21:05 06/23/17 22:05 06/23/17 22:29 Sodium Level 141mmol/L (135-144) Potassium Level 4.1mmol/L (3.5-5.1) Chloride Level 103mmol/L (97-110) Carbon Dioxide Level 26mmol/L (21-31) Anion Gap 16 (8-16) Blood Urea Nitrogen 5mg/dl (7-20) Creatinine 0.53mg/dl (0.44-1.00) Glucose Level 113mg/dl (70-220) Calcium Level 8.6mg/dl (8.4-10.2) Bedside Glucose 80mg/dL (70-220) 63mg/dL (70-220) 122mg/dL (70-220) Test 06/23/17 22:45 06/24/17 00:15 06/24/17 01:01 06/24/17 01:56 Bedside Glucose 143mg/dL (70-220) 183mg/dL (70-220) 182mg/dL (70-220) 155mg/dL (70-220) Test 06/24/17 03:02 06/24/17 04:03 06/24/17 05:03 06/24/17 06:05 Bedside Glucose 216mg/dL (70-220) 145mg/dL (70-220) 136mg/dL (70-220) 74mg/dL (70-220) Test 06/24/17 07:07 06/24/17 07:59 06/24/17 08:06 06/24/17 08:27 Bedside Glucose 70mg/dL (70-220) 54mg/dL (70-220) 174mg/dL (70-220) 107mg/dL (70-220) Test 06/24/17 08:48 06/24/17 08:49 06/24/17 11:10 Sodium Level 142mmol/L (135-144) Potassium Level 3.5mmol/L (3.5-5.1) Chloride Level 109mmol/L (97-110) Carbon Dioxide Level 24mmol/L (21-31) Anion Gap 13 (8-16) Blood Urea Nitrogen 5mg/dl (7-20) Creatinine 0.51mg/dl (0.44-1.00) Glucose Level 119mg/dl (70-220) Calcium Level 8.2mg/dl (8.4-10.2) Phosphorus Level 3.5mg/dl (2.5-4.9) Magnesium Level 1.5mg/dl (1.7-2.5) White Blood Count 8.410^3/ul (4.8-10.8) Red Blood Count 4.2410^6/ul (4.20-5.40) Hemoglobin 12.7g/dl (12.0-16.0) Hematocrit 38.1% (37.0-47.0) Mean Corpuscular Volume 89.9fl (72.0-104.0) Mean Corpuscular Hemoglobin 30.0pg (29.0-33.0) Mean Corpuscular Hemoglobin Concent 33.3g/dl (32.0-37.0) Red Cell Distribution Width 14.2% (11.5-14.5) Platelet Count 22754^3/UL (140-415) Mean Platelet Volume 9.5fl (7.4-10.4) Neutrophils % 56.9% (30.0-74.0) Lymphocytes % 33.5% (18.0-55.0) Monocytes % 6.8% (0.0-13.0) Eosinophils % 2.0% (0.0-7.0) Basophils % 0.4% (0.0-2.0) Nucleated Red Blood Cells % 0.0/100WBC (0.0-0.0) Neutrophils # 4.810^3/ul (1.6-7.5) Lymphocytes # 2.810^3/ul (0.8-2.9) Monocytes # 0.610^3/ul (0.3-0.9) Eosinophils # 0.210^3/ul (0.0-0.5) Basophils # 0.010^3/ul (0.0-0.1) Nucleated Red Blood Cells # 0.010^3/ul (0.0-0.0) Bedside Glucose 127mg/dL (70-220) ZEUS ALMANZAR NP Jun 24, 2017 13:48
[2017-06-24] MEDS ORDERED: FAMOTIDINE 20 MG TAB PO SCH (21:00)
[2017-06-25] MEDS ORDERED: ACCU-CHEK XX SCH ×2 (02:00)
== END 2017-06-24 12:35 | disposition left against medical advice (07) | DRG 637 ==
LOC: E/R 05:56 → ICU 09:16
PROVIDERS: ADMIT Internal Medicine; ATTEND Internal Medicine
DX: E10.10 Type 1 diabetes mellitus with ketoacidosis without coma (principal); G92 Toxic encephalopathy; E87.5 Hyperkalemia; R11.2 Nausea with vomiting, unspecified; Z79.4 Long term (current) use of insulin; Z91.14 Patient's other noncompliance with medication regimen
CPT/HCPCS: 36415; 76937; 80048; 80069; 80307; 81003; 82010; 82803; 82962; 83036; 83735; 84100; 84703; 85025; 87040; 87081; 96374; 96375; 96376; J0610; J1815; J2060; J2405; J3475; J3480; J7030; J7042; J7050; J7070; J7120